=== PATIENT | female | born 1970 | race Caucasian/White ===

== ENCOUNTER 2020-03-17 13:05 | Emergency (ER) | payer SELFPAY ==
[2020-03-17] MEDS ORDERED: Acetaminophen 500 MG TAB ONE (13:26)
--- NOTE | 2020-03-17 20:06 | RAD ---
RIGHT FOOT THREE VIEWS: Date: 03-17-2020 FINDINGS: An oblique fracture is seen through the distal fifth metatarsal near the neck. There is slight medial displacement of the distal fragment. The other bones of the foot appear intact. IMPRESSION: Fracture of the distal fifth metatarsal. POS: HOME
== END 2020-03-17 14:18 | disposition home or self-care (01) ==
LOC: BURERS 13:05
DX: S92.351A Displaced fracture of fifth metatarsal bone, right foot, initial encounter for closed fracture (principal); D64.9 Anemia, unspecified; F41.9 Anxiety disorder, unspecified; W22.8XXA Striking against or struck by other objects, initial encounter

== ENCOUNTER 2020-05-09 16:47 | Emergency (ER) | payer SELFPAY ==
[2020-05-09 17:28] LABS: Hemoglobin 10.9 g/dL (12.0-16.0); Mean Corpuscular HGB CONC 29.7 g/dL (32.0-36.0); Mean Corpuscular Hemoglobin 25.9 pg (27.0-31.0); Mean Corpuscular Volume 87.3 fL (78.0-98.0); Mean Platelet Volume 5.7 fL (7.4-10.4); Platelet Count 108 thou/uL (130-400); RBC Distribution Width 17.1 % (11.5-14.5); Red Blood Cell (RBC) Count 4.19 mill/uL (4.20-5.40); White Blood Cell (WBC) Count 5.8 thou/uL (4.8-10.8)
[2020-05-09 17:41] LABS: #Eosinphils 0.1 thou/uL (0.0-0.7); #Lymphocytes 0.8 thou/uL (1.20-3.40); #Monocytes 0.4 thou/uL (0.11-0.59); #Neutrophils 4.6 thou/uL (1.40-6.50); %Basophils 0.6 % (0.0-1.0); %Lymphocytes 13.1 % (21.0-51.0); %Monocytes 6.4 % (0.0-10.0); %Neutrophils 78.9 % (42.0-75.0)
[2020-05-09 17:42] LABS: ALT (SGPT) 30 U/L (8-55); AST (SGOT) 33 U/L (5-34); Albumin 3.2 g/dL (3.5-5.0); Alkaline Phosphatase 112 U/L (40-110); Anion Gap 12 mmol/L (10-20); BUN (Urea Nitrogen) 14 mg/dL (7.0-18.7); Calc. Creatinine Clearance 0 mL/min (70-130); Calcium 7.8 mg/dL (7.8-10.44); Carbon Dioxide 25 mmol/L (22-29); Chloride 106 mmol/L (98-107); Estimated GFR-MDRD Greater than 90; Globulin 3.1 g/dL (2.4-3.5); Glucose 84 mg/dL (70-105); Platelet Morphology Comment Appears Decreased; Potassium 3.6 mmol/L (3.5-5.1); Protein, Total 6.3 g/dL (6.0-8.3); Sodium 139 mmol/L (136-145)
[2020-05-09 17:43] LABS: Acetaminophen Less than 6.0 mcg/mL (10.0-30.0); Alcohol Less than 10 mg/dL (Less than 10); MDiff Complete? YES; Magnesium 1.3 mg/dL (1.6-2.6); Salicylate Less than 8.0 mg/dL (15.0-30.0)
[2020-05-09] MEDS ORDERED: Thiamine HCl 200 MG/2 ML VIAL ONE (17:46)
[2020-05-09] MEDS ORDERED: Magnesium 2 GM/50 ML BAG (IN WATER) ONE (17:46)
--- NOTE | 2020-05-09 18:00 | CT ---
CT OF THE BRAIN WITHOUT CONTRAST: 05/09/20 The ventricles are normal in size with no shift. No intracranial bleeding, mass or definite acute str joni was found. There is perhaps a little bit of chronic ischemic change in the deep white matter, tho ugh minimal. There is a little more atrophy than one might usually see in this age group. The calvari um appears normal and the paranasal sinuses are clear. IMPRESSION: No acute intracranial findings. Preliminary report called to Dr. Hyde at 1740 on 05/09/20. POS: HOME
[2020-05-09] MEDS ORDERED: Sodium Bicarb 50 MEQ/50 ML Abboject 8.4% SYRINGE ONE ×2 (18:11→18:20)
[2020-05-09] MEDS ORDERED: Lorazepam 2 MG/ML VIAL ONE ×2 (18:29→18:59)
== END 2020-05-09 19:05 | disposition short-term general hospital (02) ==
LOC: BURERS 16:47
DX: T43.011A Poisoning by tricyclic antidepressants, accidental (unintentional), initial encounter (principal); F10.239 Alcohol dependence with withdrawal, unspecified; E51.2 Wernicke's encephalopathy; D64.9 Anemia, unspecified; F41.9 Anxiety disorder, unspecified
CPT/HCPCS: 70450; 80053; 80307; 83605; 83735; 84443; 85025; 93005; 96365; 96368; 96375; 96376; J2060; J3411; J3475

== ENCOUNTER 2021-07-17 14:28 | Emergency (ER) | payer SELFPAY | END 2021-07-17 15:55 | disposition home or self-care (01) | LOC: BURERS 14:28 | DX: S00.83XA Contusion of other part of head, initial encounter (principal); S40.011A Contusion of right shoulder, initial encounter; F41.9 Anxiety disorder, unspecified; Y04.8XXA Assault by other bodily force, initial encounter; D50.9 Iron deficiency anemia, unspecified ==

== ENCOUNTER 2021-08-21 14:16 | Emergency (ER) | payer SELFPAY ==
[2021-08-21] MEDS ORDERED: Morphine 4 MG/ML VIAL ONE ×2 (16:01→17:24)
[2021-08-21 16:19] LABS: Mean Corpuscular HGB CONC 32.5 g/dL (32.0-36.0); Mean Corpuscular Volume 89.1 fL (78.0-98.0); Mean Platelet Volume 5.7 fL (7.4-10.4); Platelet Count 147 thou/uL (130-400); RBC Distribution Width 12.6 % (11.5-14.5); Red Blood Cell (RBC) Count 4.82 mill/uL (4.20-5.40); White Blood Cell (WBC) Count 5.2 thou/uL (4.8-10.8)
[2021-08-21 16:31] LABS: ALT (SGPT) 9 U/L (8-55); AST (SGOT) 16 U/L (5-34); Albumin 3.7 g/dL (3.5-5.0); Alkaline Phosphatase 89 U/L (40-110); Anion Gap 17 mmol/L (10-20); BUN (Urea Nitrogen) 17 mg/dL (9.8-20.1); Bilirubin, Total Less than 0.2 mg/dL (0.2-1.2); Calc. Creatinine Clearance 0 mL/min (70-130); Calcium 9.1 mg/dL (7.8-10.44); Carbon Dioxide 27 mmol/L (22-29); Chloride 102 mmol/L (98-107); Globulin 3.7 g/dL (2.4-3.5); Glucose 85 mg/dL (70-105); Potassium 3.9 mmol/L (3.5-5.1); Protein, Total 7.4 g/dL (6.0-8.3); Sodium 142 mmol/L (136-145)
[2021-08-21 16:46] LABS: Band 10 % (5-11); Lymphocytes 43 % (21-51); MDiff Complete? YES; Monocytes 5 % (0-10); Neutrophil 39 % (42-75)
== END 2021-08-21 17:55 | disposition home or self-care (01) ==
LOC: BURERS 14:16
DX: S42.022A Displaced fracture of shaft of left clavicle, initial encounter for closed fracture (principal); D50.9 Iron deficiency anemia, unspecified; W06.XXXA Fall from bed, initial encounter; Z79.899 Other long term (current) drug therapy
CPT/HCPCS: 71260; 80053; 85025; 96374; 96376; J2270

== ENCOUNTER 2022-04-24 11:32 | Emergency (ER) | payer OTHER, SELFPAY ==
[2022-04-24] MEDS ORDERED: HYDROcodone/Acetaminophen 5/325 mg Tablet ONE (12:19)
[2022-04-24] MEDS ORDERED: Morphine 4 MG/ML VIAL ONE (13:44)
== END 2022-04-24 13:50 | disposition home or self-care (01) ==
LOC: BURERS 11:32
DX: S91.312A Laceration without foreign body, left foot, initial encounter (principal); S90.02XA Contusion of left ankle, initial encounter; W01.0XXA Fall on same level from slipping, tripping and stumbling without subsequent striking against object, initial encounter
CPT/HCPCS: 96372; J2270

== ENCOUNTER 2025-07-06 12:55 | Emergency (ER) | payer OTHER | END 2025-07-06 14:37 | disposition home or self-care (01) | LOC: BURERS 12:55 | DX: S80.02XA Contusion of left knee, initial encounter (principal); S80.01XA Contusion of right knee, initial encounter; I10 Essential (primary) hypertension; F17.290 Nicotine dependence, other tobacco product, uncomplicated; W06.XXXA Fall from bed, initial encounter; Z79.899 Other long term (current) drug therapy | CPT/HCPCS: 99283 ==